=== PATIENT | male | born 1995 | race Caucasian/White ===

== ENCOUNTER 2019-11-11 07:33 | Emergency (ER) | payer OTHER ==
[2019-11-11] MEDS ORDERED: DIPH,PERTUS(ACELL)TETVAC-LF 0.5 ML VIAL IM ONE (07:51)
--- NOTE | 2019-11-11 07:52 | ED ---
General Adult HPI - General Chief complaint: Wound/Laceration Stated complaint: stepped on beer bottle Time Seen by Provider: 11/11/19 07:43 Source: patient Mode of arrival: wheelchair Limitations: no limitations - History of Present Illness Initial comments: Dictation was produced using [employer] dictation software. please excuse any grammatical, word or spelling errors. This patient was cared for during a federal and state declared state of emergency secondary to Covid 19 Chief Complaint: 24-year-old male presents with right foot laceration History of Present Illness: 24-year-old foot presents today with right foot laceration. Patient states he was walking around with flip-flops last night in the dark. He went out to get something from his vehicle when all of a sudden he felt a sharp pain in his right foot. Patient was locked out of the house where his keys and wallet word that's why he did not come to the emergency department sooner. He states that the incident happened approximately 11 PM last night. Patient placed somewhat glue over the laceration as a type of bandage. Denies any numbness any paresthesias to the arms or legs. Patient thinks that it was a piece of glass that he stepped on however he is not sure because it was dark outside. The ROS documented in this emergency department record has been reviewed and confirmed by me. Those systems with pertinent positive or negative responses have been documented in the HPI. All other systems are other negative and/or noncontributory. PHYSICAL EXAM: General Impression: Alert and oriented x3, not in acute distress HEENT: Normocephalic atraumatic, extra-ocular movements intact, pupils equal and reactive to light bilaterally, mucous membranes moist. Cardiovascular: Heart regular rate and rhythm Chest: Able to complete full sentences, no retractions, no tachypnea Abdomen: abdomen soft, non-tender, non-distended, no organomegaly Musculoskeletal: Pulses present and equal in all extremities, no peripheral edema Motor: no focal deficits noted Neurological: CN II-XII grossly intact, no focal motor or sensory deficits noted Right foot: One centimeter avulsion laceration to the medial right foot, there is half centimeter of surrounding erythema and swelling Skin: Intact with no visualized rashes Psych: Normal affect and mood ED course: 24-year-old male presents with right foot laceration. Vital signs upon arrival are within acceptable limits. Tetanus was updated. Laceration was repaired at bedside. X-ray shows no foreign bodies. Given that the wound is on the foot initially given prophylactic antibiotics. Return parameters discussed. Patient told to have his stitches removed in approximately 10-14 days. - Related Data Previous Rx's Medication Instructions Recorded Cephalexin [Keflex] 500 mg PO Q6HR 5 Days #20 cap 11/11/19 Allergies Allergy/AdvReac Type Severity Reaction Status Date / Time No Known Allergies Allergy Verified 11/11/19 07:42 Review of Systems ROS Statement: Those systems with pertinent positive or pertinent negative responses have been documented in the HPI. ROS Other: All systems not noted in ROS Statement are negative. Past Medical History Past Medical History: No Reported History History of Any Multi-Drug Resistant Organisms: None Reported Additional Past Surgical History / Comment(s): right knee and right hand surgery, cleft lip Past Psychological History: No Psychological Hx Reported Smoking Status: Never smoker Past Alcohol Use History: None Reported Past Drug Use History: None Reported General Exam Limitations: no limitations Course Vital Signs 11/11/19 07:39 Temperature 98.0 F Pulse Rate 79 Respiratory 18 Rate Blood Pressure 137/78 O2 Sat by Pulse 99 Oximetry Procedures - Laceration Laceration #1 Consent Obtained: verbal consent Indication: laceration Site: foot Size (cm): 1 Description: linear Depth: simple, single layer Pre-repair: irrigated extensively Type of Sutures: nylon Size of Sutures: 4-0 Technique: other (Horizontal mattress 1) Patient Tolerated Procedure: well Disposition Clinical Impression: Laceration Disposition: HOME SELF-CARE Instructions (If sedation given, give patient instructions): Laceration (ED) Additional Instructions: Suture removal in 10-14 days Prescriptions: Cephalexin [Keflex] 500 mg PO Q6HR 5 Days #20 cap Is patient prescribed a controlled substance at d/c from ED?: No Referrals: None,Stated [Primary Care Provider] - 1-2 days Time of Disposition: 08:47
[2019-11-11] MEDS ORDERED: LIDOCAINE 1% INJ 10MG/ML (20 ML MDV) SQ ONE (08:29)
--- NOTE | 2019-11-11 09:57 | XR ---
Right foot HISTORY: Foreign body 3 views of the right foot There is soft tissue swelling present at the medial aspect of the right foot mid foot level. Bone min eralization, joint spaces and alignment are maintained. No fracture or dislocation. Accessory navicul ar type II noted incidentally. IMPRESSION: No radiographic foreign body, follow-up as indicated.
[2019-11-13 09:17] VITALS: BP 137/78; PULSE 79; RESP 18; TEMP 98
== END 2019-11-11 09:11 | disposition home or self-care (01) ==
LOC: EC 07:33
DX: S91.311A Laceration without foreign body, right foot, initial encounter (principal); W22.8XXA Striking against or struck by other objects, initial encounter
CPT/HCPCS: 12001; 99283